=== PATIENT | male | born 1950 | race Caucasian/White ===

== ENCOUNTER → 2019-06-25 | Outpatient (CLI) | payer MEDICARE, OTHER ==
--- NOTE | 2019-06-25 13:45 | US ---
EXAMINATION TYPE: US venous doppler duplex LE DATE OF EXAM: 06/25/2019 1:33 PM COMPARISON: NONE CLINICAL HISTORY: R60.0 LOCALIZED EDEMA. Swelling SIDE PERFORMED: Bilateral TECHNIQUE: The lower extremity deep venous system is examined utilizing real time linear array sonog viv with graded compression, doppler sonography and color-flow sonography. VESSELS IMAGED: External Iliac Vein (EIV) Common Femoral Vein Deep Femoral Vein Greater Saphenous Vein * Femoral Vein Popliteal Vein Small Saphenous Vein * Proximal Calf Veins (* superficial vessels) Grayscale, color doppler, spectral doppler imaging performed of the deep veins of the lower extremiti es. There is normal flow, compressibility, vascular waveforms. Right Leg: Negative for DVT Left Leg: Negative for DVT IMPRESSION: No sonographic evidence of deep venous thrombosis within either the bilateral lower extr emities.
== END | disposition home or self-care (01) ==
LOC: RADUSWWP 13:08
PROVIDERS: ATTEND Family Medicine
DX: R60.0 Localized edema (principal)
CPT/HCPCS: 93970

== ENCOUNTER 2021-07-30 12:47 | Emergency (ER) | payer MEDICARE, OTHER ==
[2021-07-30] MEDS ORDERED: ACETAMINOPHEN TAB 325 MG TAB PO STA (15:44)
[2021-07-30] MEDS ORDERED: SODIUM CHLORIDE 0.9% 1,000 ML IV STA (15:44)
--- NOTE | 2021-07-30 15:48 | ED ---
General Adult HPI - General Chief complaint: Upper Respiratory Infection Stated complaint: COVID+, Wants BAM Time Seen by Provider: 07/30/21 14:54 Source: patient Mode of arrival: ambulatory Limitations: no limitations - History of Present Illness Initial comments: 71-year-old male presents to the emergency Department with complaints of fever, fatigue, nausea, and decreased appetite. Patient states his symptoms began on the and he tested positive for Covid on the . Patient states he spoke with his PCP who recommended he come to the emergency department for the monoclonal antibody infusion. Patient states he does get short of breath with activity and has a strong, nonproductive cough. Patient denies headache, chest pain, abdominal pain, constipation, diarrhea, dysuria, or hematuria. - Related Data Allergies Allergy/AdvReac Type Severity Reaction Status Date / Time No Known Allergies Allergy Verified 07/30/21 13:31 Review of Systems ROS Statement: Those systems with pertinent positive or pertinent negative responses have been documented in the HPI. ROS Other: All systems not noted in ROS Statement are negative. Past Medical History Past Medical History: Hypertension Additional Past Medical History / Comment(s): Arthritis Past Surgical History: Joint Replacement, Orthopedic Surgery Additional Past Surgical History / Comment(s): Spinal fusion Smoking Status: Never smoker Past Alcohol Use History: Occasional Past Drug Use History: None Reported General Exam Limitations: no limitations (Well-developed, well-nourished male in no acute distress. Initial temperature 100.1, pulse 133, respirations 22, blood pressure 124/70, pulse ox 94% on room air.) General appearance: alert, in no apparent distress ENT exam: Present: normal exam, normal oropharynx, mucous membranes moist Neck exam: Present: normal inspection. Absent: tenderness, meningismus, lymphadenopathy Respiratory exam: Present: normal lung sounds bilaterally, other (Strong nonproductive cough). Absent: respiratory distress, wheezes, rales, rhonchi, stridor, chest wall tenderness Cardiovascular Exam: Present: normal rhythm, tachycardia, normal heart sounds GI/Abdominal exam: Present: soft, normal bowel sounds. Absent: distended, tenderness, guarding, rebound, rigid Back exam: Present: normal inspection. Absent: CVA tenderness (R), CVA tenderness (L) Neurological exam: Present: alert, oriented X3, CN II-XII intact Psychiatric exam: Present: normal affect, normal mood Skin exam: Present: warm, dry, intact, normal color Course Vital Signs 07/30/21 07/30/21 07/30/21 13:28 15:57 18:23 Temperature 100.1 F H 99.7 F H 98.7 F Pulse Rate 133 H 80 72 Respiratory 22 18 18 Rate Blood Pressure 124/70 123/79 O2 Sat by Pulse 94 L 96 96 Oximetry - Reevaluation(s) Reevaluation #1: 07/30/21 16:20 Patient resting comfortably awaiting monoclonal antibody infusion. Denies shortness of breath or difficulty breathing at this time. Patient afebrile and no longer tachycardic. Medical Decision Making - Medical Decision Making 71-year-old male with a history of hypertension and a recent positive COVID test presents to the emergency department requesting to have a monoclonal antibody infusion. Upon exam, patient is warm to touch and tachycardic. Patient does have a strong, nonproductive cough. Reports shortness of breath with activity, though is in no distress at this time. Patient was unable to provide proof of positive Covid test with necessary identifiers therefore was agreeable to retest for proper documentation. Upon positive test, risks and benefits were discussed with patient, monoclonal antibody infusion ordered, and patient tolerated it without any adverse side effects. Upon departure, patient reports feeling improved; he is afebrile, not tachycardic, and not tachypneic. Urged to treat symptoms such as fever and headache alternating Tylenol and Motrin. He is instructed to follow up with his primary care provider via phone. Return parameters were discussed in detail. Patient verbalizes understanding and agrees with this plan. Patient's care was discussed with my attending Dr. Jeronimo. - Lab Data Lab Results 07/30/21 Range/Units 13:46 Coronavirus (PCR) Detected A (Not Detectd) Disposition Clinical Impression: COVID-19 Disposition: HOME SELF-CARE Instructions (If sedation given, give patient instructions): Coronavirus Disease 2019 (COVID-19) Additional Instructions: Follow-up with your primary care provider via telephone for a recheck. Alternate Tylenol and Motrin as needed for fever or discomfort. Return to the emergency department with any new, worsening, or concerning symptoms. You should quarantine for 10 days from symptom onset. Is patient prescribed a controlled substance at d/c from ED?: No Referrals: Louie Oakley MD [Primary Care Provider] - 1-2 days Time of Disposition: 18:30
[2021-07-30 15:57] VITALS: RESP 18
[2021-07-30] MEDS ORDERED: SODIUM CHLORIDE 0.9% 50 ML IVPB ONE (16:30)
[2021-07-30] MEDS ORDERED: CASIRIVIMAB (REGN10933) (EUA) 600 MG, IMDEVIMAB (REGN10987) (EUA) 600 MG in SODIUM CHLO... IVPB ONE (16:45)
[2021-07-30 18:24] VITALS: BP 123/79; PULSE 72; TEMP 98.7
== END 2021-07-30 18:23 | disposition home or self-care (01) ==
LOC: EC 12:47
DX: U07.1 COVID-19 (principal); I10 Essential (primary) hypertension
CPT/HCPCS: 99284; 87635; Q0243

== ENCOUNTER → 2022-08-16 | Outpatient (CLI) | payer MEDICARE, OTHER | END | disposition home or self-care (01) | LOC: LABWHC1 12:57 | PROVIDERS: ATTEND Family Medicine | DX: I10 Essential (primary) hypertension (principal) | CPT/HCPCS: 36415; 93005 ==

== ENCOUNTER → 2024-02-22 | Outpatient (CLI) | payer MEDICARE, OTHER ==
--- NOTE | 2024-02-22 12:56 | US ---
EXAMINATION TYPE: US venous doppler duplex LE LT DATE OF EXAM: 02/22/2024 12:49 PM COMPARISON: NONE CLINICAL INDICATION: Male, 73 years old with history of R22.40LOCALIZED SWELLING, MASS AND LUMP, UNSP ECIFI; On aspirin. Discoloration posterior left calf, recent road trip. SIDE PERFORMED: Left TECHNIQUE: The lower extremity deep venous system is examined utilizing real time linear array sonog viv with graded compression, doppler sonography and color-flow sonography. VESSELS IMAGED: Common Femoral Vein Deep Femoral Vein Greater Saphenous Vein * Femoral Vein Popliteal Vein Small Saphenous Vein * Proximal Calf Veins (* superficial vessels) Left Leg: Negative for DVT. Area of concern scanned with no abnormality seen. IMPRESSION: Grayscale, color doppler, spectral doppler imaging performed of the deep veins of the lo wer extremities. There is normal flow, compressibility, vascular waveforms.
== END | disposition home or self-care (01) ==
LOC: RADUSWWP 12:04
PROVIDERS: ATTEND Family Medicine
DX: R22.40 Localized swelling, mass and lump, unspecified lower limb (principal)

== ENCOUNTER → 2024-02-27 | Outpatient (CLI) | payer MEDICARE, OTHER ==
[2024-02-27 11:07] LABS: Basophils % (A) 1 %; Eosinophils # (A) 0.1 k/uL (0-0.7); Eosinophils % (A) 3 %; HCT 45.3 % (39.0-53.0); HGB 13.7 gm/dL (13.0-17.5); Lymphocytes % (A) 24 %; MCHC 30.3 g/dL (31.0-37.0); Monocytes # (A) 0.3 k/uL (0-1.0); Monocytes % (A) 7 %; Neutrophils # (A) 2.5 k/uL (1.3-7.7); Neutrophils % (A) 64 %; Platelet Count 179 k/uL (150-450); RBC 4.57 m/uL (4.30-5.90); RDW 14.1 % (11.5-15.5)
[2024-02-27 15:31] LABS: ALT 20 U/L (10-49); AST 18 U/L (14-35); Albumin 4.2 g/dL (3.8-4.9); Albumin/Globulin Ratio 1.68 Ratio (1.60-3.17); Alkaline Phosphatase 83 U/L (41-126); BUN/Creat Ratio 20.55 Ratio (12.00-20.00); Blood Urea Nitrogen 22.6 mg/dL (9.0-27.0); Calcium 8.8 mg/dL (8.7-10.3); Carbon Dioxide 25.7 mmol/L (21.6-31.8); Chloride 106 mmol/L (96-109); Chol/HDL Ratio 2.59 Ratio; Globulin 2.5 g/dL (1.6-3.3); Glucose 102 mg/dL (70-110); LDL Cholesterol,Calculated 105.3 mg/dL (0.0-131.0); Potassium 4.7 mmol/L (3.5-5.5); Sodium 141 mmol/L (135-145); Total Bilirubin 0.3 mg/dL (0.3-1.2); Total Protein 6.7 g/dL (6.2-8.2)
== END | disposition home or self-care (01) ==
LOC: LABWHC1 10:34
PROVIDERS: ATTEND Family Medicine
DX: Z12.5 Encounter for screening for malignant neoplasm of prostate (principal); E78.5 Hyperlipidemia, unspecified; R73.03 Prediabetes
CPT/HCPCS: 36415; 80053; 80061; 83036; 84153; 84443; 85025